=== PATIENT | female | born 1980 | race African-American/Black ===

== ENCOUNTER 2016-03-30 16:17 | Observation (INO) | payer OTHER ==
[~2016-03-30] VITALS: Ht 167.6 cm; Wt 77.8 kg
[~2016-03-30 16:17] MED LIST: AMOXICILLIN500 MG PO; NAPROSYN500 MG PO; ULTRAM50 MG PO
[2016-03-30 17:08] LABS: HEMATOCRIT 38.9 % (36.0-46.0); MCH 28.6 PG (29.0-34.0); MCHC 33.7 G/DL (30.0-36.0); MCV 84.9 FL (83-99); MEAN PLAT.VOLUME 8.6 uM^3 (9.5-12.4); PLATELET COUNT 341 K/uL (156-360); RBC DIS.WIDTH-CV 12.5 % (11.8-14.6); RED BLOOD COUNT 4.58 M/uL (3.80-5.20); WHITE BLOOD COUNT 5.2 K/uL (4.1-10.2)
[2016-03-30 17:18] LABS: CHLORIDE 108 mEq/L (99-109); POTASSIUM 3.4 mEq/L (3.7-5.4); SODIUM 141 mEq/L (136-147)
[2016-03-30 17:20] LABS: GLUCOSE 118 mg/dL (70-99)
[2016-03-30 17:21] LABS: ANION GAP 6 MEQ/L (2-14)
[2016-03-30 17:24] LABS: GFR ESTIMATE (CALCULATED) > 59 mL/min/; UREA NITROGEN (BUN) 11 mg/dL (9-23)
[2016-03-30 17:32] LABS: TROP-I INTERPRETATION NEGATIVE; TROPONIN-I < 0.01 ng/mL (0.0-0.30)
[2016-03-30 19:06] LABS: QUANTITATIVE HCG < 4.0 MIU/ML
[2016-03-30] MEDS ORDERED: EXCEDRIN EXTRA1 EACH PO (21:51)
[2016-03-30 23:00] LABS: SAMPLE HEMOLYSIS CHECK 0; SAMPLE ICTERIC CHECK 0; SAMPLE LIPEMIA CHECK 0
[2016-03-30 23:06] LABS: HDL CHOLESTEROL 47 MG/DL (Desirable>=50); LDL CHOLESTEROL 56 mg/dL (Desirable<100); NON-HDL CHOLESTEROL 65 mg/dL (Desirable<160); TOTAL CHOLESTEROL 112 mg/dL (Desirable<200); TRIGLYCERIDES 46 MG/DL (Normal: <150)
[2016-03-30 23:45] VITALS: BP 123/73
[2016-03-31 04:45] VITALS: BP 107/57
[2016-03-31 07:41] LABS: Estimated Average Glucose 108 mg/dL (70-123); HEMOGLOBIN A1c (GLYCOHEMOGLOB) 5.4 % HGB (Below 5.7)
[2016-03-31 08:59] VITALS: BP 118/66
[2016-03-31 11:42] VITALS: BP 127/66
[2016-03-31 16:25] VITALS: BP 119/70
[2016-03-31] MEDS ORDERED: PERCOCET 5/31 TABLET PO (17:51)
== END 2016-03-31 18:47 | disposition home or self-care (01) ==
LOC: EME 16:17 → 5WEST 21:53 → EDOF 21:53 → 5WEST 23:36
PROVIDERS: Physician Assistant
DX: M54.2 Cervicalgia (principal); R51 Headache; R53.1 Weakness; E87.6 Hypokalemia; F31.9 Bipolar disorder, unspecified; Z82.3 Family history of stroke; Z72.0 Tobacco use
CPT/HCPCS: 70450; 70544; 70549; 70551; 71020; 80048; 80061; 83036; 84484; 84702; 85027; 93005; 93306; 99281; 99285; G0378; J1200; J1885; J2765